=== PATIENT | male | born 1965 | race Caucasian/White ===

== ENCOUNTER 2018-04-27 09:54 | Outpatient (CLI) | payer BC ==
[~2018-04-27] VITALS: Ht 185.4 cm; Wt 95.8 kg
[2018-04-27] MEDS ORDERED: ROSU10TA27 PO (10:09)
[2018-04-27] MEDS ORDERED: QUET50TA55 PO (10:09)
[2018-04-27] MEDS ORDERED: AMLO-359 PO (10:09)
[2018-04-27 10:13] VITALS: BP 116/77
[2018-04-27 11:00] LABS: BASOPHILS % (AUTO) 0 % (0-10); EOSINOPHILS % (AUTO) 0 % (0-10); HEMATOCRIT 41 % (40-54); HEMOGLOBIN 14.6 G/DL (13.3-17.7); LYMPHOCYTES # (AUTO) 1.9 X 10^3 (1.0-4.0); LYMPHOCYTES % (AUTO) 26 % (12-44); MEAN CORPUSCULAR HEMOGLOBIN 29 PG (25-34); MEAN CORPUSCULAR HGB CONC 36 G/DL (32-36); MEAN CORPUSCULAR VOLUME 82 FL (80-99); MEAN PLATELET VOLUME 9.6 FL (7.4-10.4); MONOCYTES # (AUTO) 0.7 X 10^3 (0.0-1.0); MONOCYTES % (AUTO) 10 % (0-12); NEUTROPHILS # (AUTO) 4.6 X 10^3 (1.8-7.8); NEUTROPHILS % (AUTO) 64 % (42-75); PLATELET COUNT 197 10^3/uL (130-400); RED BLOOD COUNT 4.96 10^6/uL (4.35-5.85); RED CELL DISTRIBUTION WIDTH 13.3 % (10.0-14.5); WHITE BLOOD COUNT 7.2 10^3/uL (4.3-11.0)
[2018-04-27 11:22] LABS: BUN/CREATININE RATIO 22; CALCIUM 9.4 MG/DL (8.5-10.1); CARBON DIOXIDE 25 MMOL/L (21-32); CHLORIDE 105 MMOL/L (98-107); CREATININE SERUM 0.85 MG/DL (0.60-1.30); GFR ESTIMATED > 60; GLUCOSE 101 MG/DL (70-105); POTASSIUM 3.1 MMOL/L (3.6-5.0); SODIUM 140 MMOL/L (135-145)
[2018-04-27] MEDS ORDERED: NS 250 ML (IVPB) BAG IV ONE (12:00)
[2018-04-27] MEDS ORDERED: IOHEXOL 350 MG/ML 100 ML (OMNIPAQUE 350) VIAL IV ONE (12:00)
--- NOTE | 2018-04-27 12:20 | Diagnostic Imaging Report ---
EXAMINATION: PA and lateral chest at 1117h. INDICATION: Preop biopsy right tonsil. There are no prior studies available for comparison. Heart size is within normal limits. The lungs are clear. There is no evidence for failure, pneumonia or for a pleural effusion. The mediastinum is not widened. The osseous structures are intact. There is deformity of the midshaft of left clavicle due to a long-standing fracture. IMPRESSION: There is no evidence for active disease. Dictated by: Dictated on workstation # [id number]
--- NOTE | 2018-04-27 13:25 | Diagnostic Imaging Report ---
PROCEDURE: CT neck soft tissue with contrast. TECHNIQUE: Multiple contiguous axial images were obtained through the neck after the administration of contrast. INDICATION: Asymmetric tonsil. COMPARISON: There are no prior studies available for comparison. FINDINGS: The right tonsil does seem larger than the left. The right tonsil is estimated to be approximately 2.3 x 2.8 cm while the left tonsil is only 1.8 x 2.0 cm in size. The reason for the asymmetry of the tonsils is not certain. There is no sign of a peritonsillar abscess, and there is no adenopathy about the right tonsil to suggest that it is related to an inflammatory/infectious process. If further evaluation is desired, then direct visualization would be recommended. The submandibular gland and parotid glands are symmetrical and within normal limits. The thyroid gland is not enlarged and appears homogeneous. The tracheal air shadow is not compressed or deviated. The intracranial contents, the orbits, and the sinuses where visualized are unremarkable for an acute abnormality. The bone windows show no evidence for a fracture or for a destructive lesion. There is reversal of the normal lordosis of the cervical spine. This may be secondary to muscle spasm and/or positioning. Also, there is a rounded osteophyte indenting the right ventral aspect of the thecal sac at the C4-5 level. There does seem to be moderate central stenosis at this level. The lung apices are clear. IMPRESSION: 1. There is asymmetry of the tonsils with the right being larger than the left. The reason for this discrepancy is not certain, however. There is no sign of a peritonsillar abscess. Even so, direct visualization would be recommended for further evaluation. 2. There is no acute abnormality of the neck. 3. There is degenerative disc and bony disease involving the cervical spine, particularly at L4-5. There does appear to be spinal stenosis on the right at this level. Dictated by: Dictated on workstation # [id number]
== END 2018-04-27 13:19 | disposition home or self-care (01) ==
LOC: RAD 09:54 → EDUNIT# 10:00 → RAD 13:19
PROVIDERS: ATTEND Otolaryngology Otolaryngology/Facial Plastic Surgery
DX: Z01.818 Encounter for other preprocedural examination (principal); J35.8 Other chronic diseases of tonsils and adenoids; M50.30 Other cervical disc degeneration, unspecified cervical region
CPT/HCPCS: 36415; 70491; 71046; 80048; 85025; 87081; 93005

== ENCOUNTER 2018-04-29 06:40 | Day surgery (SDC) | payer BC ==
[~2018-04-29] VITALS: Ht 185.4 cm; Wt 95.8 kg
[~2018-04-29 06:40] MED LIST: AMLO-359 PO; QUET50TA55 PO; ROSU10TA27 PO
[2018-04-29 06:55] VITALS: BP 106/68
[2018-04-29] MEDS: LACTATED RINGERS 1,000 ML IV PRN ×2 (07:10→09:52)
[2018-04-29] MEDS ORDERED: LIDOCAINE/EPI 1%-1:200,000 (XYLOCAINE) 10 ML VIAL ONE (07:35)
[2018-04-29] MEDS ORDERED: fentaNYL INJECTION 100 MCG/2 ML AMP ONE (07:42)
[2018-04-29] MEDS ORDERED: LIDOCAINE PF 2% 2 ML (XYLOCAINE) VIAL ONE (07:42)
[2018-04-29] MEDS ORDERED: ONDANSETRON 4 MG/2 ML (SDV) Z0FRAN ONE (07:42)
[2018-04-29] MEDS ORDERED: DEXAMETHASONE 10 MG/ML (DECADRON) 1 ML VIAL ONE (07:42)
[2018-04-29] MEDS ORDERED: MIDAZOLAM 2 MG/2 ML (VERSED) VIAL ONE (07:42)
[2018-04-29] MEDS ORDERED: proPOfol 200 MG/20 ML (DIPRIVAN) VIAL IV ONE (07:42)
[2018-04-29] MEDS ORDERED: ROCURONIUM 10 MG/ML 5 ML SYRINGE IV ONE (07:45)
[2018-04-29] MEDS ORDERED: SEVOFLURANE (ULTANE) 15 ML INHAL SOLN ONE ×2 (07:49→08:50)
--- NOTE | 2018-04-29 08:02 | Progress Note-Pre Operative ---
Pre-Operative Progress Note H&P Reviewed The H&P was reviewed, patient examined and no changes noted. Date Seen by Provider: Apr 29, 2018 Time Seen by Provider: 08:00 Date H&P Reviewed: Apr 29, 2018 Time H&P Reviewed: 08:00 Pre-Operative Diagnosis: Abnormal Right Tonsil/Right Throat Pain SMITH KRAUSE MD Apr 29, 2018 8:02 am
[2018-04-29] MEDS ORDERED: morphine INJ 10 MG/ML 1ML (SYR OR VIAL) IVP ONE (08:30)
[2018-04-29] MEDS ORDERED: ONDANSETRON 4 MG/2 ML (SDV) Z0FRAN IVP PRN (08:30)
[2018-04-29] MEDS ORDERED: MEPERIDINE (DEMEROL) INJ 50 MG/ML IVP ONE (08:30)
[2018-04-29] MEDS ORDERED: NS IV 1000 ML 1,000 ML IV SCH (09:04)
--- NOTE | 2018-04-29 09:04 | Progress Note-Post Operative ---
Post-Operative Progess Note Surgeon (s)/Sales Associate Key Holder (s) Surgeon SMITH KRAUSE MD Sales Associate Key Holder n/a Pre-Operative Diagnosis Abnormal Right Tonsil/Right Throat Pain Post-Operative Diagnosis same Post-Op Procedure Note Date of Procedure: Apr 29, 2018 Name of Procedure Performed: Right Tonsillectomy Description & Findings Description and Findings: n/a Anesthesia Type get Estimated Blood Loss minimal Packing none. Specimen(s) collected/removed right tonsil for frozen section SMITH KRAUSE MD Apr 29, 2018 9:03 am
[2018-04-29] MEDS ORDERED: GLYCOPYRROLATE 0.2 MG/ML (ROBINUL) 2 ML VIAL ONE (09:05)
[2018-04-29] MEDS ORDERED: NEOSTIGMINE 1 MG/ML 5 ML SYRINGE ONE (09:05)
[2018-04-29] MEDS ORDERED: HYDROcodone/APAP 7.5MG-325 MG/15 ML (LORTAB) UDC PO PRN (09:15)
[2018-04-29] MEDS ORDERED: APAP 325 MG/10.15 ML LIQ (TYLENOL) UDC PO PRN (09:15)
[2018-04-29] MEDS ORDERED: 2% VISCOUS LIDOCAINE PO (09:48)
[2018-04-29] MEDS ORDERED: HYDR15SO8 PO (09:48)
[2018-04-29 10:15] VITALS: BP 140/92
[2018-04-29 10:45] VITALS: BP 124/77
[2018-04-29 11:15] VITALS: BP 118/76
[2018-04-29 11:25] VITALS: BP 118/76
--- NOTE | 2018-04-29 14:12 | Anesthesia-General Post-Op ---
General Patient Condition Mental Status/LOC: Same as Preop Cardiovascular: Satisfactory Nausea/Vomiting: Absent Respiratory: Satisfactory Pain: Controlled Complications: Absent Post Op Complications Complications None Follow Up Care/Instructions Patient Instructions None needed. Anesthesia/Patient Condition Patient Condition Patient is doing well, no complaints, stable vital signs, no apparent adverse anesthesia problems. No complications reported per nursing. SAM MENDEZ CRNA Apr 29, 2018 14:12
== END 2018-04-29 11:40 | disposition home or self-care (01) ==
LOC: SDC 06:40
PROVIDERS: ATTEND Otolaryngology Otolaryngology/Facial Plastic Surgery
DX: C09.1 Malignant neoplasm of tonsillar pillar (anterior) (posterior) (principal); I10 Essential (primary) hypertension; G47.33 Obstructive sleep apnea (adult) (pediatric); Z87.891 Personal history of nicotine dependence; Z79.899 Other long term (current) drug therapy
CPT/HCPCS: 88304; 88331; 88332; 88342

== ENCOUNTER 2018-08-11 13:14 | Outpatient (RCR) | payer BC, OTHER ==
[2018-06-08 14:19] LABS: BUN/CREATININE RATIO 14; CREATININE SERUM 1.23 MG/DL (0.60-1.30); GFR ESTIMATED > 60
[~2018-08-11 13:14] MED LIST changes: +2% VISCOUS LIDOCAINE PO; +HYDR15SO8 PO
== END 2018-08-23 | disposition home or self-care (01) ==
LOC: ONC 13:14
PROVIDERS: ATTEND Radiology Radiation Oncology
DX: C09.1 Malignant neoplasm of tonsillar pillar (anterior) (posterior) (principal); I10 Essential (primary) hypertension; Z87.891 Personal history of nicotine dependence; Z79.899 Other long term (current) drug therapy
CPT/HCPCS: 77300; 77301; 77334; 77336; 77338; 77386; 82565; 84520; 99204

== ENCOUNTER 2018-08-31 15:01 | Outpatient (RCR) | payer BC, OTHER | END 2018-11-29 | disposition home or self-care (01) | LOC: ONC 15:01 | PROVIDERS: ATTEND Radiology Radiation Oncology | DX: C09.1 Malignant neoplasm of tonsillar pillar (anterior) (posterior) (principal); I10 Essential (primary) hypertension; Z87.891 Personal history of nicotine dependence; Z79.899 Other long term (current) drug therapy | CPT/HCPCS: 99213 ==

== ENCOUNTER → 2018-11-01 | Outpatient (CLI) | payer BC ==
[~2018-11-01] MED LIST changes: +CATHETER FLUSH 10 ML SYR IV PRN; +HOLD METFORMIN - RECEIVED CONTRAST 20 ML VIAL IV SCH; +IOHEXOL 350 MG/ML 100 ML (OMNIPAQUE 350) VIAL IV ONE; +NS 100 ML (IVPB) BAG IV ONE
[2018-11-01 10:11] LABS: BUN/CREATININE RATIO 14; GFR ESTIMATED > 60
--- NOTE | 2018-11-01 10:59 | Diagnostic Imaging Report ---
PROCEDURE: CT abdomen and pelvis with contrast. TECHNIQUE: Multiple contiguous axial images were obtained through the abdomen and pelvis after administration of intravenous contrast. Auto Exposure Controls were utilized during the CT exam to meet ALARA standards for radiation dose reduction. INDICATION: Hepatic cyst. No prior studies are available for comparison. Dependent atelectasis in both lung bases is noted. No discrete solid or cystic masses identified within the liver. The gallbladder is unremarkable. No biliary duct dilatation is seen. The pancreas and spleen are unremarkable. No adrenal mass is identified. The kidneys are unremarkable. Aorta is non-aneurysmal. The small and large bowel loops are normal caliber. There is no ascites. The bladder and prostate are unremarkable. Adenopathy is seen. IMPRESSION: Unremarkable CT of the abdomen and pelvis. No acute abnormality is detected. No liver mass is detected. Dictated by: Dictated on workstation # [id number]
--- NOTE | 2018-11-01 11:02 | Diagnostic Imaging Report ---
PROCEDURE: CT neck soft tissue with contrast. TECHNIQUE: Multiple contiguous axial images were obtained through the neck after the administration of contrast. Auto Exposure Controls were utilized during the CT exam to meet ALARA standards for radiation dose reduction. INDICATION: History of right tonsil carcinoma. Patient complains of left tonsillar region pain. COMPARISON: Correlation is made with prior CT neck from 04/27/2018. FINDINGS: The visualized intracranial structures are unremarkable. Posterior nasopharynx is unremarkable. Previously noted soft tissue prominence in the tonsillar region, right greater is no longer appreciated. The parapharyngeal fat planes are preserved. Oral pharyngeal mucosa appears unremarkable. Epiglottis and larynx are unremarkable. No thyroid mass is detected. The submandibular glands and parotid glands appear to be symmetric bilaterally. No cervical lymphadenopathy is seen. No fluid collections are identified. IMPRESSION: Essentially unremarkable CT soft tissue neck study. Dictated by: Dictated on workstation # [id number]
== END ==
LOC: RAD 09:18
PROVIDERS: ATTEND Otolaryngology Otolaryngology/Facial Plastic Surgery
DX: K76.89 Other specified diseases of liver (principal); R07.0 Pain in throat; Z85.818 Personal history of malignant neoplasm of other sites of lip, oral cavity, and pharynx
CPT/HCPCS: 36415; 70491; 74177; 82565; 84520

== ENCOUNTER → 2019-04-12 | Outpatient (CLI) | payer BC ==
[~2019-04-12] MED LIST changes: -ROSU10TA27 PO; +ROSU10TA28 PO
[2019-04-12 13:47] LABS: BUN/CREATININE RATIO 15; CREATININE SERUM 0.95 MG/DL (0.60-1.30); GFR ESTIMATED > 60
--- NOTE | 2019-04-12 14:42 | Diagnostic Imaging Report ---
CLINICAL INDICATION: Patient with history of tonsil carcinoma. No neck complaints currently. EXAM: CT scan of the neck with 100 cc of Omnipaque 350 IV contrast. Coronal and sagittal reformatted images are created. COMPARISON: CT scan of the neck with contrast dated 11/01/2018. FINDINGS: There is interval decreased mild soft tissue swelling involving the supraglottic larynx. There is no significant swelling seen. There is no measurable mass. The glottis is closed. The nasopharynx, oropharynx, hypopharynx and laryngeal soft tissue structures are unremarkable. There is no neck lymphadenopathy. There is persistent enhancement and lobulated appearance to the right submandibular gland. There is small amount of adjacent fat stranding to the right submandibular gland which has decreased compared to the prior study. There is also decreased fat stranding superficial and deep to the right platysmas muscle along the length of the neck. There is residual mild thickening of the right platysmas muscle. These findings may be from post treatment changes. The remainder of the salivary glands are unremarkable. Thyroid gland is unremarkable. There is no lymphadenopathy. The neck vascular structures are patent as visualized. The visualized upper lung meek show mild emphysematous lung disease. Cervical spine degenerative disease is seen. Limited visualization of the intracranial structures are unremarkable. Again seen small amount of mucosal thickening/mucous retention cysts involving both maxillary sinuses. Temporal bone structures are unremarkable. IMPRESSION: 1: There is no evidence of developing mass or lymphadenopathy. There is interval decreased swelling in the supraglottic larynx region. 2: There is persistent enhancement in lobulated appearance of the right submandibular gland. There is small amount of fat stranding adjacent to the right submandibular gland which has decreased compared to the prior study. There is also decreased swelling along the right side of the neck and right platysmas muscle region. These findings are suspected to be related to post treatment changes. 3: The remainder of this exam shows no significant interval change compared to the prior study of comparison. Dictated by: Dictated on workstation # [id number]
--- NOTE | 2019-04-12 14:45 | Diagnostic Imaging Report ---
PROCEDURE: CT abdomen and pelvis with contrast. TECHNIQUE: Multiple contiguous axial images were obtained through the abdomen and pelvis after administration of intravenous contrast. Auto Exposure Controls were utilized during the CT exam to meet ALARA standards for radiation dose reduction. INDICATION: Hepatic cyst. Patient also complains of mid abdominal soreness. COMPARISON: Correlation is made with prior CT from 11/01/2018. FINDINGS: The lung bases demonstrate minimal infiltrate or atelectasis in the posterior left lower lobe. No discrete liver mass is identified. Gallbladder appears to contain a small stone. There is no biliary ductal dilatation. Pancreas and spleen are unremarkable. No adrenal mass is seen. Kidneys are unremarkable. Aorta is nonaneurysmal. No central retroperitoneal or mesenteric lymphadenopathy is detected. Small and large bowel loops appear to be normal in caliber. There is a small fat-containing left paramidline ventral hernia. No herniated bowel loops are seen. There is no ascites. The bladder and prostate are unremarkable. There is a small fat-containing left inguinal hernia. Bony structures are nonacute. IMPRESSION: 1. No discrete liver mass is identified. 2. Cholelithiasis. 3. Small fat-containing left paramidline ventral hernia. No acute feature in the abdomen or pelvis is identified. Dictated by: Dictated on workstation # [id number]
== END ==
LOC: RAD 13:04
PROVIDERS: ATTEND Otolaryngology Otolaryngology/Facial Plastic Surgery
DX: K76.89 Other specified diseases of liver (principal); K80.20 Calculus of gallbladder without cholecystitis without obstruction; K43.9 Ventral hernia without obstruction or gangrene; Z85.818 Personal history of malignant neoplasm of other sites of lip, oral cavity, and pharynx
CPT/HCPCS: 36415; 70491; 74177; 82565; 84520

== ENCOUNTER → 2022-06-04 | Outpatient (CLI) | payer OTHER ==
[~2022-06-04] MED LIST changes: -CATHETER FLUSH 10 ML SYR IV PRN; -HOLD METFORMIN - RECEIVED CONTRAST 20 ML VIAL IV SCH; -IOHEXOL 350 MG/ML 100 ML (OMNIPAQUE 350) VIAL IV ONE; -NS 100 ML (IVPB) BAG IV ONE; +QUET50TA23 PO; -QUET50TA55 PO
== END ==
LOC: WOUNDCARE 09:03
PROVIDERS: ATTEND Family Medicine
DX: K04.1 Necrosis of pulp (principal); W88.8XXD Exposure to other ionizing radiation, subsequent encounter; K02.9 Dental caries, unspecified; C44.329 Squamous cell carcinoma of skin of other parts of face; Z87.891 Personal history of nicotine dependence
CPT/HCPCS: 99213